=== PATIENT | male | born 1935 | race Caucasian/White ===

== ENCOUNTER 2017-06-25 14:22 | Emergency (ER) | payer OTHER, MEDICARE ==
[~2017-06-25] VITALS: Ht 175.3 cm; Wt 87.0 kg
[~2017-06-25 14:22] MED LIST: ALEVE220 MG PO; ASPIR 8181 M1 PO; B COMPLETE1 EACH PO; DICLOXACILLIN250 MG PO; GLIPIZIDE10 MG PO; LISINOPRIL10 MG PO; NAPROXEN375 M1 PO; PERCOCET 5/31 TABLET PO; PROTONIX40 MG PO; TOPROL XL50 MG PO; VITAMIN D5000 UNIT PO; VYTORIN 10/41 TABLET PO
[2017-06-25 15:29] LABS: HEMATOCRIT 48.6 % (38.0-50.0); HEMOGLOBIN 15.9 G/DL (12.5-16.6); MCH 30.3 PG (29.0-34.0); MCHC 32.7 G/DL (30.0-36.0); MCV 92.6 FL (86-99); PLATELET COUNT 193 K/uL (156-360); RBC DIS.WIDTH-CV 13.2 % (11.8-14.6); RBC DIS.WIDTH-SD 44.8 % (39-53); RED BLOOD COUNT 5.25 M/uL (4.00-5.50); WHITE BLOOD COUNT 10.3 K/uL (4.1-10.2)
[2017-06-25 15:39] LABS: CHLORIDE 106 mEq/L (99-109); POTASSIUM 4.5 mEq/L (3.7-5.4); SODIUM 143 mEq/L (136-147)
[2017-06-25 15:41] LABS: GLUCOSE 68 mg/dL (70-99)
[2017-06-25 15:44] LABS: CREATININE 1.1 mg/dL (0.6-1.3); GFR ESTIMATE (CALCULATED) > 59 mL/min/ (58.99-99999)
[2017-06-25 15:45] LABS: UREA NITROGEN (BUN) 19 mg/dL (9-23)
[2017-06-25 15:51] LABS: TROP-I INTERPRETATION NEGATIVE; TROPONIN-I < 0.01 ng/mL (0.0-0.30)
[2017-06-25 18:28] VITALS: BP 150/74
== END 2017-06-25 18:29 | disposition home or self-care (01) ==
LOC: EME 14:22
DX: R00.2 Palpitations (principal); E11.9 Type 2 diabetes mellitus without complications; J44.9 Chronic obstructive pulmonary disease, unspecified; Z87.891 Personal history of nicotine dependence; Z88.8 Allergy status to other drugs, medicaments and biological substances
CPT/HCPCS: 71046; 80048; 84484; 85027; 93005; 99281; 99284